=== PATIENT | male | born 1985 | race Caucasian/White ===

== ENCOUNTER 2018-01-22 18:25 | Emergency (ER) | payer OTHER ==
[2018-01-22] MEDS ORDERED: DIPH,PERTUS(ACELL)TETVAC-LF 0.5 ML VIAL IM ONE (18:34)
[2018-01-22 18:36] VITALS: BP 144/69; PULSE 122; RESP 20; TEMP 99.2
--- NOTE | 2018-01-22 18:48 | ED ---
General Adult HPI - General Chief complaint: Seizure Stated complaint: seizure/head injury Time Seen by Provider: 01/22/18 18:25 Source: patient, EMS, RN notes reviewed Mode of arrival: EMS Limitations: no limitations - History of Present Illness Initial comments: This is a 32-year-old male who presents emergency department with past medical history significant for seizure. According to his he had a seizure today was post ictal. Patient is alert and oriented 4 currently. Patient states he has seizures quite often sometimes 3 for a day sometimes he goes a few months without having any seizures. Patient states he has not recently been ill he's had no fever chills or cough. Patient denies any chest pain difficulty breathing shortness of breath. Patient denies any nausea vomiting or diarrhea recently. Patient denies any drug use or drinking. Patient states he has no complaint currently. Patient denies headache patient denies numbness weakness. Patient denies any neck pain. Patient hasn't numbness weakness. Patient denies any abdominal pain. Patient denies any extremity injury. Patient denies back pain. - Related Data Allergies Allergy/AdvReac Type Severity Reaction Status Date / Time acetaminophen [From [place]] Allergy Unknown Verified 01/22/18 18:36 hydrocodone [From [place]] Allergy Unknown Verified 01/22/18 18:36 morphine Allergy Unknown Verified 01/22/18 18:36 Review of Systems ROS Statement: Those systems with pertinent positive or pertinent negative responses have been documented in the HPI. ROS Other: All systems not noted in ROS Statement are negative. Past Medical History Past Medical History: Seizure Disorder History of Any Multi-Drug Resistant Organisms: None Reported Additional Past Surgical History / Comment(s): brain surgery Past Psychological History: No Psychological Hx Reported Smoking Status: Never smoker Past Alcohol Use History: None Reported Past Drug Use History: None Reported General Exam - General Exam Comments Initial Comments: GENERAL: Patient is well-developed and well-nourished. Patient is nontoxic and well- hydrated and is in no acute distress. ENT: Neck is soft and supple. No significant lymphadenopathy is noted. Oropharynx is clear. Moist mucous membranes. Neck has full range of motion without eliciting any pain. Patient has a superficial abrasion to the bridge of his nose EYES: The sclera were anicteric and conjunctiva were pink and moist. Extraocular movements were intact and pupils were equal round and reactive to light. Eyelids were unremarkable. PULMONARY: Unlabored respirations. Good breath sounds bilaterally. No audible rales rhonchi or wheezing was noted. CARDIOVASCULAR: There is a regular rate and rhythm without any murmurs gallops or rubs. ABDOMEN: Soft and nontender with normal bowel sounds. No palpable organomegaly was noted. There is no palpable pulsatile mass. SKIN: Skin is clear with no lesions or rashes and otherwise unremarkable. NEUROLOGIC: Patient is alert and oriented x3. Cranial nerves II through XII are grossly intact. Motor and sensory are also intact. Normal speech, volume and content. Symmetrical smile. MUSCULOSKELETAL: Normal extremities with adequate strength and full range of motion. LYMPHATICS: No significant lymphadenopathy is noted PSYCHIATRIC: Normal psychiatric evaluation. Limitations: no limitations Course Vital Signs 01/22/18 18:33 Temperature 99.2 F Pulse Rate 122 H Respiratory 20 Rate Blood Pressure 144/69 O2 Sat by Pulse 98 Oximetry Medical Decision Making - Medical Decision Making I recommended the patient we do some blood work and try to see if there is any reason for him having seizures today patient declined and refused to have any blood work done. Patient wanted to leave immediately. was in agreement with this decision. Disposition Clinical Impression: Generalized seizure Disposition: Left Against Medical Advice Instructions: Recurrent Seizures in Adults (ED) Referrals: Zuleima Collins MD [Primary Care Provider] - 1-2 days Time of Disposition: 18:48
== END 2018-01-22 19:12 | disposition left against medical advice (07) ==
LOC: EC 18:25 → SUPCPDRO 18:25 → EC 19:12
DX: S00.31XA Abrasion of nose, initial encounter (principal); G40.909 Epilepsy, unspecified, not intractable, without status epilepticus; Z53.29 Procedure and treatment not carried out because of patient's decision for other reasons; Z88.5 Allergy status to narcotic agent; Z88.6 Allergy status to analgesic agent
CPT/HCPCS: 99284